=== PATIENT | male | born 1990 | race African-American/Black ===

== ENCOUNTER 2021-01-04 00:19 | Emergency (ER) | payer BC, SELFPAY ==
[2021-01-04 01:06] VITALS: BP 161/81; PULSE 110; RESP 18; TEMP 36.5; O2SAT 98; BMI 29.8
--- NOTE | 2021-01-04 01:15 | PC.NURSE ---
Pt has 20/50 in both right and left eye.
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
--- NOTE | 2021-01-04 01:18 | PC.NURSE ---
Pt given an ice pack to hold on left eye
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
[2021-01-04 02:36] VITALS: BP 148/76; PULSE 92; RESP 16; TEMP 36.5; O2SAT 99
== END 2021-01-04 02:38 | disposition home or self-care (01) ==
PROVIDERS: Emergency Provider Emergency Medicine; PCP Family Medicine
DX: S00.83XA Contusion of other part of head, initial encounter (principal); S05.8X2A Other injuries of left eye and orbit, initial encounter; Y04.0XXA Assault by unarmed brawl or fight, initial encounter
CPT/HCPCS: 70486; 99282